=== PATIENT | male | born 1990 | race African-American/Black ===

== ENCOUNTER 2020-02-14 14:06 | Emergency (ER) | payer OTHER ==
[~2020-02-14] VITALS: Ht 182.9 cm; Wt 84.0 kg
--- NOTE | 2020-02-14 14:26 | PHYS DOC ---
Past Medical History Past Medical History: Other Additional Past Medical Histor: L)shoulder., TBI, PTSD Past Surgical History: Other Additional Past Surgical Histo: Fx L)shouler socket with surgery repair. Smoking Status: Current Every Day Smoker Alcohol Use: Rarely Drug Use: Marijuana General Adult EDM: Chief Complaint: ABDOMINAL PAIN HPI: HPI: Patient is a 30 year old male with a history of smoking, marijuana use, who presents the ED today complaining of abdominal pain with nausea vomiting, symptoms began 3 days ago. Patient rates the pain as 10 out of 10, describes the pain as sharp and constant. Patient denies any alleviating or relieving factors to his pain. He presents to the ED today from the [facility] where he was worked up for the same symptoms and discharged approximately an hour ago. He states he was informed he has vomiting from marijuana use which he was not happy about, he was also discharged with prescription for Compazine. He states he wants his pain fixed right now in the ED. Review of Systems: Review of Systems: Constitutional: Denies fever or chills. [] Eyes: Denies change in visual acuity. [] HENT: Denies nasal congestion or sore throat. [] Respiratory: Denies cough or shortness of breath. [] Cardiovascular: Denies chest pain or edema. [] GI: Reports abdominal pain with nausea vomiting, denies bloody stools or diarrhea. [] : Denies dysuria. [] Musculoskeletal: Denies back pain or joint pain. [] Integument: Denies rash. [] Neurologic: Denies headache, focal weakness or sensory changes. [] Lymphatic: Denies swollen glands. [] Psychiatric: Moaning and groaning Heart Score: Risk Factors: Risk Factors: DM, Current or recent (<one month) smoker, HTN, HLP, family h istory of CAD, obesity. Risk Scores: Score 0 - 3: 2.5% MACE over next 6 weeks - Discharge Home Score 4 - 6: 20.3% MACE over next 6 weeks - Admit for Clinical Observation Score 7 - 10: 72.7% MACE over next 6 weeks - Early Invasive Strategies Allergies: Allergies: Allergies Coded Allergies Type Severity Reaction Last Updated Verified No Known Drug Allergies 08/05/15 No Physical Exam: PE: Constitutional: Well developed, well nourished, no acute distress, non-toxic appearance. [] HENT: Normocephalic, atraumatic, bilateral external ears normal, oropharynx moist, no oral exudates, nose normal. [] Eyes: PERRLA, EOMI, conjunctiva normal, no discharge. [] Neck: Normal range of motion, no tenderness, supple, no stridor. [] Cardiovascular:Heart rate regular rhythm, no murmur [] Lungs & Thorax: Bilateral breath sounds clear to auscultation [] Abdomen: Bowel sounds normal, soft, no tenderness, no masses, no pulsatile masses. [] Skin: Warm, dry, no erythema, no rash. [] Back: No tenderness, no CVA tenderness. [] Extremities: No tenderness, no cyanosis, no clubbing, ROM intact, no edema. [] Neurologic: Alert and oriented X 3, normal motor function, normal sensory func tion, no focal deficits noted. [] Psychologic: Moaning and groaning, yelling at times EKG: EKG: [] Radiology/Procedures: Radiology/Procedures: [] Course & Med Decision Making: Course & Med Decision Making Pertinent Labs and Imaging studies reviewed. (See chart for details) This is a 30-year-old male patient who presents to the ED today from the [facility] after being evaluated for cyclic vomiting due to marijuana use. He arrives in the ED moaning and groaning and demanding a fix for his pain. Spoke to patient and gave him realistic expectations about his visit today. Informed him we can do labs which the [facility] had already done and see if he needs a CT of the abdomen and pelvic. He continues to demand affixed to his symptoms specifically pain. Informed him we will not give him any narcotics. Informed him he is welcome to stay for lab work and possible CT if warranted and will be discharged home if everything is negative. He continues to demand to be given something for his symptoms specifically pain. He stood up quickly ripped off his blood pressure cuff and is O2 monitor, he took his belongings and walked out his room slamming the door hard enough to shake the room. He also used a couple "f" words as he walked away. He was in no distress walking away. He was n ot even moaning or groaning as he walked away. Laurent Disclaimer: Laurent Disclaimer: This electronic medical record was generated, in whole or in part, using a voice recognition dictation system. Departure Departure Impression: Primary Impression: Marijuana use Additional Impression: Cyclic vomiting syndrome Disposition: HOME, SELF-CARE Condition: STABLE Referrals: UNKNOWN PCP NAME (PCP) NALLELY PARRY APRN Feb 14, 2020 14:26
[2020-02-14 14:27] VITALS: BP 130/61
[2020-02-14 14:49] LABS: BARBITURATES NEG (NEG); BENZODIAZEPINES NEG (NEG); CANNABINOIDS POS (NEG); COCAINE NEG (NEG); METHADONE NEG (NEG); OPIATES NEG (NEG); PHENCYCLIDINE NEG (NEG)
[2020-02-14 14:50] LABS: AMPHETAMINE/METHAMPHETAMINE NEG (NEG)
== END 2020-02-14 14:33 | disposition left against medical advice (07) ==
LOC: ER 14:06
DX: R11.15 Cyclical vomiting syndrome unrelated to migraine (principal); F12.10 Cannabis abuse, uncomplicated; F17.200 Nicotine dependence, unspecified, uncomplicated
CPT/HCPCS: 80307; 99283